=== PATIENT | female | born 1995 | race Caucasian/White ===

== ENCOUNTER 2018-05-28 21:47 | Emergency (ER) | payer OTHER ==
[~2018-05-28] VITALS: Ht 149.9 cm; Wt 83.9 kg
[2018-05-28] MEDS ORDERED: OMEPRAZOLE40 MG (21:56)
[2018-05-28] MEDS ORDERED: LAMICTAL ODT100 MG (21:57)
[2018-05-28] MEDS ORDERED: BUSPIRONE HCL10 MG (21:57)
[2018-05-28] MEDS ORDERED: ZANTAC 150MG T150 MG (21:58)
[2018-05-28] MEDS ORDERED: FOLIC ACID1 MG (21:58)
[2018-05-28] MEDS ORDERED: DIPHENHIST50 MG (21:58)
[2018-05-28 22:23] LABS: ABSOLUTE BASOPHILS 0.1 thou/uL (0.0-0.2); ABSOLUTE EOSINOPHILS 0.2 thou/uL (0.0-0.7); ABSOLUTE MONOCYTES 0.8 thou/uL (0.0-1.2); ABSOLUTE NEUTROPHILS 7.6 thou/uL (1.6-8.1); BASOPHILS 0.8 %; EOSINOPHILS 1.8 %; HEMATOCRIT 41.1 % (37.0-47.0); HEMOGLOBIN 14.2 gm/dL (12.0-15.0); LYMPHOCYTES 31.2 %; MCH 29.7 pg (26.0-34.0); MCHC 34.6 g/dL (28.0-37.0); MCV 85.9 fL (80.0-100.0); MONOCYTES 6.2 %; MPV 8.8 fl. (7.2-11.1); NUCLEATED RBCS 0 /100WBC; PLATELET COUNT* 305 thou/uL (150-400); RBC 4.79 mil/uL (4.20-5.00); RDW-CV 13.1 % (10.5-14.5); WBC 12.7 thou/uL (4.0-11.0)
[2018-05-28 22:40] LABS: ALBUMIN 3.4 g/dL (3.4-5.0); CALCIUM 8.8 mg/dL (8.5-10.1); CREATININE 0.8 mg/dL (0.6-1.3); POTASSIUM 3.5 mmol/L (3.5-5.1); TOTAL BILIRUBIN 0.2 mg/dL (<0.1-1.0); TOTAL PROTEIN 7.1 g/dL (6.4-8.2)
[2018-05-28 22:54] LABS: URINE BILIRUBIN NEGATIVE (Negative); URINE BLOOD NEGATIVE (Negative); URINE CLARITY CLEAR; URINE COLOR YELLOW; URINE GLUCOSE-RANDOM NEGATIVE (Negative); URINE KETONES NEGATIVE (Negative); URINE LEUKOCYTES-REFLEX NEGATIVE (Negative); URINE NITRITE-REFLEX NEGATIVE (Negative); URINE PROTEIN NEGATIVE (Negative); URINE UROBILINOGEN 0.2 E.U./dl (0.2-1.0)
[2018-05-29] MEDS ORDERED: NAPROSYN500 MG PO (00:17)
[2018-05-29 00:52] VITALS: BP 123/66
--- NOTE | 2018-05-29 10:04 | EKG ---
[place] [address] ELECTROCARDIOGRAM REPORT Name: IVANIA RAZA Room: [facility]#: [id number] Admission: 05/28/18 Attend Phys: Discharge: 05/29/18 Date of : [birth year] Report #: [id number] THIS REPORT FOR: //name// [facility] ED Test Date: 2018-05-28 Test Time: 21:52:25 Pat Name: IVANIA RAZA Department: Room: Gender: F Detasseler: JOSEPHINE : 1995 Requested By: Francesca Blakely Order Number: [id number] MD: Dalton Almazan Measurements Intervals [place] Rate: 87 P: 16 OR: 129 QRS: 19 QRSD: 87 T: 18 QT: 371 QTc: 447 Interpretive Statements Sinus rhythm LVH by voltage No previous ECG available for comparison Electronically Signed On 05-29-2018 10:04:44 CDT by Dalton Almazan [email or web address] <ELECTRONICALLY SIGNED> By: Dalton Almazan MD, FACC 05/29/18 [id number] Dalton lAmazan MD, FACC /EPI
--- NOTE | 2018-05-29 15:06 | EKG ---
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
== END 2018-05-29 00:53 | disposition home or self-care (01) ==
LOC: M.ERS 21:47
PROVIDERS: Physician Assistant
DX: R42 Dizziness and giddiness (principal); R10.32 Left lower quadrant pain; R10.31 Right lower quadrant pain; R10.11 Right upper quadrant pain; R10.12 Left upper quadrant pain; N32.89 Other specified disorders of bladder; R91.1 Solitary pulmonary nodule; F41.9 Anxiety disorder, unspecified; F31.9 Bipolar disorder, unspecified; Z88.1 Allergy status to other antibiotic agents; Z88.8 Allergy status to other drugs, medicaments and biological substances; Z91.040 Latex allergy status